=== PATIENT | female | born 1970 | race Caucasian/White ===

== ENCOUNTER → 2017-07-18 | Outpatient (CLI) | payer BC | END | disposition home or self-care (01) | LOC: CFH 10:18 | PROVIDERS: ATTEND Obstetrics & Gynecology | DX: N64.4 Mastodynia (principal); Z80.3 Family history of malignant neoplasm of breast | CPT/HCPCS: 76642; 77066 ==

== ENCOUNTER → 2018-02-25 | Outpatient (CLI) | payer BC ==
[~2018-02-25] MED LIST: None per pt
== END | disposition home or self-care (01) ==
LOC: STAR 09:13
PROVIDERS: ATTEND Obstetrics & Gynecology Female Pelvic Medicine and Reconstructive Surgery
DX: Z02.9 Encounter for administrative examinations, unspecified (principal)

== ENCOUNTER 2018-03-04 08:04 | Day surgery (SDC) | payer BC ==
[2018-02-25 10:08] VITALS: BP 141/89
[~2018-03-04] VITALS: Ht 165.1 cm; Wt 73.3 kg
[~2018-03-04 08:04] MED LIST changes: +BUPIVACAINE 0.25% ONE; +EPINEPHRINE 1 MG/ML, 1ML ONE; +NEOMY/POLYMYXIN B GU IRR. 1 ML IRRIG ONE
[2018-03-04] MEDS ORDERED: LACTATED RINGERS 1,000 ML IV SCH (09:22)
[2018-03-04 10:25] LABS: HCG UR SG 1.017 (1.003-1.030)
[2018-03-04] MEDS ORDERED: LIDOCAINE 2% 100MG/5ML SYRINGE ONE (10:39)
[2018-03-04] MEDS ORDERED: ROCURONIUM 10MG/ML,5ML ONE (10:39)
[2018-03-04] MEDS ORDERED: GLYCOPYRROLATE 0.2MG/1ML, 5ML ONE (10:39)
[2018-03-04] MEDS ORDERED: NEOSTIGMINE 1 MG/ML, 10ML ONE (10:39)
[2018-03-04] MEDS ORDERED: PHENYLEPHRINE 10 MG/ML ONE (10:39)
[2018-03-04] MEDS ORDERED: PROPOFOL 10 MG/ML, 20ML ONE (10:39)
[2018-03-04] MEDS ORDERED: MIDAZOLAM 1 MG/ML, 2ML ONE (10:41)
[2018-03-04] MEDS ORDERED: FENTANYL PF 100 MCG/2ML ONE ×3 (10:41→12:31)
[2018-03-04] MEDS ORDERED: DEXAMETHASONE 4 MG/ML, 1ML ONE (10:42)
[2018-03-04] MEDS ORDERED: ONDANSETRON 2MG/ML, 2ML ONE ×2 (10:42)
[2018-03-04] MEDS ORDERED: METOCLOPRAMIDE 5 MG/ML, 2ML ONE (10:42)
[2018-03-04] MEDS ORDERED: CLINDAMYCIN 150 MG/ML, 6ML ONE (11:00)
[2018-03-04] MEDS ORDERED: HYDROmorphone 1 MG/ML, 1ML IV PRN (12:30)
[2018-03-04] MEDS ORDERED: LABETALOL 5MG/ML, 20ML IV PRN (12:30)
[2018-03-04] MEDS ORDERED: OXYcodone 5 MG/5 ML ORAL.SOL UDC PO PRN (12:30)
[2018-03-04] MEDS ORDERED: ONDANSETRON 2MG/ML, 2ML IVPush PRN (12:30)
[2018-03-04] MEDS ORDERED: MEPERIDINE/PF 25MG/0.5ML IVPush PRN (12:30)
[2018-03-04] MEDS ORDERED: MIDAZOLAM 1 MG/ML, 2ML IV PRN (12:30)
[2018-03-04] MEDS ORDERED: ACETAMINOPHEN 325 MG TABLET ONE (12:31)
[2018-03-04] MEDS ORDERED: ACETAMINOPHEN 650 MG/20.3 ML UDC ONE (12:31)
[2018-03-04] MEDS ORDERED: OXYcodone 5 MG/5 ML ORAL.SOL UDC ONE (12:31)
[2018-03-04] MEDS: FENTANYL PF 100 MCG/2ML IV PRN ×2 (12:35→12:45)
[2018-03-04] MEDS ORDERED: ACETAMINOPHEN 325 MG TABLET PO ONE (13:30)
[2018-03-04] MEDS ORDERED: OXYcodone/APAP 5/325MG TABLET ONE (17:04)
[2018-03-04] MEDS ORDERED: OXYcodone/APAP 5/325MG TABLET PO PRN (17:30)
== END 2018-03-04 18:50 | disposition home or self-care (01) ==
LOC: OUT 08:04
PROVIDERS: ATTEND Obstetrics & Gynecology Female Pelvic Medicine and Reconstructive Surgery
DX: N92.1 Excessive and frequent menstruation with irregular cycle (principal); N94.6 Dysmenorrhea, unspecified; D25.9 Leiomyoma of uterus, unspecified; N94.10 Unspecified dyspareunia; N81.89 Other female genital prolapse; N39.46 Mixed incontinence; Z88.0 Allergy status to penicillin; Z88.8 Allergy status to other drugs, medicaments and biological substances
CPT/HCPCS: 57265; 57282; 57288; 58552; 81025; 88307; C1771; J0171; J1100; J2250; J2370; J2405; J2704; J2710; J2765; J3010; J3490; J7120